=== PATIENT | male | born 1955 | race Caucasian/White ===

== ENCOUNTER 2017-07-23 20:21 | Inpatient (IN) | payer SELFPAY ==
[~2017-07-23] VITALS: Ht 170.2 cm; Wt 96.2 kg
[~2017-07-23 20:21] MED LIST: DAYPRO600 M1 PO; NAPROSYN500 MG PO; ROBAXIN750 MG PO; VICODIN 5/500 505 MG PO
[2017-07-23 20:25] VITALS: BP 119/66
[2017-07-23 20:58] LABS: BASO # 0.1 10*3/uL (0.0-0.1); BASO % 0.5 % (0.0-1.0); EOS # 0.1 10*3/uL (0.0-0.4); EOS % 1.3 % (1.0-4.0); HEMATOCRIT 49.3 % (42.0-52.0); HEMOGLOBIN 16.3 g/dl (14.0-18.0); LYMPH # 1.2 10*3/uL (1.3-4.4); LYMPH % 11.1 % (27.0-41.0); MEAN CELL VOLUME 92.1 fl (80.0-94.0); MEAN CORPUSCULAR HGB 30.5 pg (27.0-31.0); MEAN CORPUSCULAR HGB CONC 33.1 g/dl (33.0-37.0); MEAN PLATELET VOLUME 9.5 fl (9.6-12.3); MONO % 9.3 % (3.0-9.0); NEUT # 8.3 10*3/uL (2.3-7.9); NEUT % 77.6 % (47.0-73.0); PLATELET COUNT AUTOMATED 245 10*3/uL (130-400); RED BLOOD COUNT 5.35 10*6/uL (4.50-5.90); RED CELL DISTRI WIDTH 12.7 % (0-14.5); WHITE BLOOD COUNT 10.6 10*3/uL (4.8-10.8)
[2017-07-23 21:08] LABS: ACT PARTIAL THROMBO TIME 26.1 SECONDS (20.8-31.5); INTERNATIONAL NORM RATIO 0.9 (2.0-3.5)
[2017-07-23 21:15] LABS: ALBUMIN 3.6 gm/dl (3.1-4.5); ALKALINE PHOSPHATASE 86 U/L (45-117); BUN 15 mg/dl (7-24); CHLORIDE 98 mmol/L (98-107); CREATININE 0.83 mg/dL (0.70-1.30); POTASSIUM 4.4 mmol/L (3.5-5.1); SGOT/AST 19 IU/L (3-35); SGPT/ALT 29 U/L (12-78); SODIUM 142 mmol/L (136-145); TOTAL PROTEIN 7.6 gm/dL (6.4-8.2)
[2017-07-23 21:26] LABS: TROPONIN I < 0.015 ng/ml (<0.045)
[2017-07-23 22:12] VITALS: BP 110/51
[2017-07-23 22:27] VITALS: BP 122/57
[2017-07-23 23:40] LABS: ABG BASE EXCESS 4.8 mmol/L (-2.0-2.0); ABG HCO3 31.7 mmol/l (22-26); ABG O2 SATURATION 88.5 % (95-97); ARTERIAL BLOOD GAS PCO2 59.5 mmHg (35-45); ARTERIAL BLOOD GAS PH 7.349 (7.35-7.45); ARTERIAL BLOOD GAS PO2 54.9 mmHg (80-90)
[2017-07-24] VITALS: BP 132/53
[2017-07-24] MEDS ORDERED: CENTRAVITES 501 EACH PO (00:07)
[2017-07-24] MEDS ORDERED: FLONASE ALLERG9.9 ML NAS (00:08)
[2017-07-24] MEDS ORDERED: CLARITIN10 MG PO (00:08)
[2017-07-24 05:20] LABS: ALKALINE PHOSPHATASE 77 U/L (45-117); BUN 14 mg/dl (7-24); CHLORIDE 102 mmol/L (98-107); CHOLESTEROL 161 mg/dL (<200); CREATININE 0.87 mg/dL (0.70-1.30); FREE T4 1.08 ng/dl (0.76-1.46); HDL CHOLESTEROL 47 mg/dl (40-60); LDL CHOLESTEROL 104 mg/dL (9-159); PHOSPHOROUS 2.5 mg/dL (2.5-4.9); POTASSIUM 4.5 mmol/L (3.5-5.1); SGOT/AST 20 IU/L (3-35); SGPT/ALT 28 U/L (12-78); SODIUM 140 mmol/L (136-145); TOTAL PROTEIN 6.9 gm/dL (6.4-8.2); TRIGLYCERIDES 49 mg/dl (<150); VLDL CHOLESTEROL 10 mg/dL (6-40)
[2017-07-24 05:25] LABS: THYROID STIM HORMONE (HS) 0.741 uIU/ml (0.358-4.75)
[2017-07-24 06:09] LABS: HEMATOCRIT 45.8 % (42.0-52.0); HEMOGLOBIN 14.9 g/dl (14.0-18.0); MEAN CELL VOLUME 94.6 fl (80.0-94.0); MEAN CORPUSCULAR HGB 30.8 pg (27.0-31.0); MEAN CORPUSCULAR HGB CONC 32.5 g/dl (33.0-37.0); MEAN PLATELET VOLUME 9.7 fl (9.6-12.3); PLATELET COUNT AUTOMATED 220 10*3/uL (130-400); RED BLOOD COUNT 4.84 10*6/uL (4.50-5.90); RED CELL DISTRI WIDTH 12.7 % (0-14.5); WHITE BLOOD COUNT 8.3 10*3/uL (4.8-10.8)
[2017-07-24 07:08] LABS: ATYPICAL LYMPHS 3 % (0-0); PLATELET SUFFICIENCY NORMAL (NORMAL); TOTAL CELLS COUNTED 100 #CELLS; VITAMIN D, 25-HYDROXY 18.4 ng/mL (30-100)
[2017-07-24 08:00] VITALS: BP 110/61
[2017-07-24 12:00] VITALS: BP 113/56
[2017-07-24 16:00] VITALS: BP 111/56
[2017-07-24 20:00] VITALS: BP 115/66
[2017-07-25] VITALS: BP 104/62
[2017-07-25 06:34] LABS: BASO % 0.1 % (0.0-1.0); HEMATOCRIT 44.9 % (42.0-52.0); HEMOGLOBIN 14.7 g/dl (14.0-18.0); LYMPH # 1.4 10*3/uL (1.3-4.4); LYMPH % 9.9 % (27.0-41.0); MEAN CELL VOLUME 93.7 fl (80.0-94.0); MEAN CORPUSCULAR HGB 30.7 pg (27.0-31.0); MEAN CORPUSCULAR HGB CONC 32.7 g/dl (33.0-37.0); MEAN PLATELET VOLUME 9.5 fl (9.6-12.3); MONO # 0.9 10*3/uL (0.1-1.0); MONO % 6.7 % (3.0-9.0); NEUT # 11.4 10*3/uL (2.3-7.9); NEUT % 82.7 % (47.0-73.0); PLATELET COUNT AUTOMATED 243 10*3/uL (130-400); RED BLOOD COUNT 4.79 10*6/uL (4.50-5.90); WHITE BLOOD COUNT 13.8 10*3/uL (4.8-10.8)
[2017-07-25 07:01] LABS: BUN 20 mg/dl (7-24); CHLORIDE 101 mmol/L (98-107); CREATININE 0.87 mg/dL (0.70-1.30); POTASSIUM 4.9 mmol/L (3.5-5.1); SODIUM 138 mmol/L (136-145)
[2017-07-25 08:00] VITALS: BP 113/76
[2017-07-25] MEDS ORDERED: B12,B-12,B 12500 MC1 PO (11:43)
[2017-07-25] MEDS ORDERED: Vitamin D PO (11:43)
[2017-07-25] MEDS ORDERED: LEVAQUIN750 M1 PO (11:43)
[2017-07-25] MEDS ORDERED: PREDNISONE10 MG PO (11:43)
[2017-07-25 12:00] VITALS: BP 115/85
[2017-07-25] MEDS ORDERED: PROVENTIL HFA6.7 GM INH (12:29)
[2017-07-25 16:00] VITALS: BP 111/48
== END 2017-07-25 19:22 | disposition home or self-care (01) | DRG 871 ==
LOC: ED 20:21 → EDHOLD 21:44 → 4E 21:44
PROVIDERS: Family Medicine; Internal Medicine Critical Care Medicine; Internal Medicine Nephrology; Student in an Organized Health Care Education/Training Program; ADMIT Internal Medicine
DX: A41.9 Sepsis, unspecified organism (principal); J96.02 Acute respiratory failure with hypercapnia; J18.9 Pneumonia, unspecified organism; J44.1 Chronic obstructive pulmonary disease with (acute) exacerbation; J44.0 Chronic obstructive pulmonary disease with (acute) lower respiratory infection; R65.20 Severe sepsis without septic shock; Z71.6 Tobacco abuse counseling; Z82.0 Family history of epilepsy and other diseases of the nervous system

== ENCOUNTER 2021-10-09 15:14 | Emergency (ER) | payer SELFPAY ==
[~2021-10-09] VITALS: Ht 170.1 cm; Wt 96.2 kg
[~2021-10-09 15:14] MED LIST changes: +B12,B-12,B 12500 MC1 PO; +CENTRAVITES 501 EACH PO; +CLARITIN10 MG PO; +FLONASE ALLERG9.9 ML NAS; +LEVAQUIN750 M1 PO; +PREDNISONE10 MG PO; +PROVENTIL HFA6.7 GM INH; +Vitamin D PO
[2021-10-09] MEDS ORDERED: LIPITOR20 MG PO (15:24)
[2021-10-09 15:29] VITALS: BP 121/49
[2021-10-09] MEDS ORDERED: NAPROSYN500 MG PO (17:50)
== END 2021-10-09 18:00 | disposition home or self-care (01) ==
LOC: ED 15:14
DX: M25.462 Effusion, left knee (principal); Z79.899 Other long term (current) drug therapy; Z87.891 Personal history of nicotine dependence

== ENCOUNTER 2022-11-19 01:27 | Inpatient (IN) | payer BC ==
[~2022-11-19] VITALS: Ht 177.8 cm; Wt 88.9 kg
[~2022-11-19 01:27] MED LIST changes: +LIPITOR20 MG PO
[2022-11-19 01:46] VITALS: BP 124/74
[2022-11-19 02:37] LABS: BASO % 0.2 % (0.0-1.0); EOS # 0.1 10*3/uL (0.0-0.4); EOS % 0.6 % (1.0-4.0); HEMATOCRIT 50.7 % (42.0-52.0); LYMPH # 1.1 10*3/uL (1.3-4.4); MEAN CELL VOLUME 92.9 fl (80.0-94.0); MEAN CORPUSCULAR HGB 30.6 pg (27.0-31.0); MEAN CORPUSCULAR HGB CONC 32.9 g/dl (33.0-37.0); MEAN PLATELET VOLUME 9.1 fl (9.6-12.3); MONO # 0.7 10*3/uL (0.1-1.0); NEUT # 8.3 10*3/uL (2.3-7.9); PLATELET COUNT AUTOMATED 272 10*3/uL (130-400); RED BLOOD COUNT 5.46 10*6/uL (4.50-5.90); RED CELL DISTRI WIDTH 12.1 % (0-14.5); WHITE BLOOD COUNT 10.3 10*3/uL (4.8-10.8)
[2022-11-19 02:49] LABS: ACT PARTIAL THROMBO TIME 25.8 SECONDS (20.0-32.1)
[2022-11-19 02:56] LABS: ALKALINE PHOSPHATASE 139 U/L (46-116); BUN 15 mg/dl (9-23); CHLORIDE 103 mmol/L (98-107); POTASSIUM 4.4 mmol/L (3.4-5.1); SGPT/ALT 218 U/L (10-49)
[2022-11-19 03:07] LABS: LIPASE > 3500 U/L (12-53)
[2022-11-19 05:00] VITALS: BP 126/52
[2022-11-19 05:12] LABS: BILIRUBIN Negative (Negative); BLOOD Negative (Negative); CLARITY Clear (Clear); COLOR Dark Yellow (Yellow); GLUCOSE Negative (Negative); KETONE Negative (Negative); LEUKO ESTERASE Negative (Negative); NITRITE Negative (Negative); PH 7.5 (4.5-8.0); SPECIFIC GRAVITY 1.015 (1.001-1.030)
[2022-11-19 05:19] LABS: BACTERIA TRACE; RBC 0-2 rbc/hpf (0-2); WBC 0-2 wbc/hpf (0-5)
[2022-11-19 07:35] LABS: THYROID STIM HORMONE (HS) 2.284 uIU/ml (0.550-4.780)
[2022-11-19 08:00] VITALS: BP 109/53
[2022-11-19] MEDS ORDERED: VITAMIN D3125 MC1 PO (09:33)
[2022-11-19] MEDS ORDERED: SPIRIVA -- 3018 MCG INH (09:35)
[2022-11-19 12:00] VITALS: BP 132/57
[2022-11-19 16:00] VITALS: BP 136/68
[2022-11-19 20:00] VITALS: BP 132/61
[2022-11-20] VITALS: BP 128/53
[2022-11-20 04:35] LABS: BASO % 0.4 % (0.0-1.0); EOS # 0.1 10*3/uL (0.0-0.4); EOS % 0.9 % (1.0-4.0); HEMATOCRIT 43.4 % (42.0-52.0); LYMPH % 25.7 % (27.0-41.0); MEAN CELL VOLUME 93.5 fl (80.0-94.0); MEAN CORPUSCULAR HGB 30.2 pg (27.0-31.0); MEAN CORPUSCULAR HGB CONC 32.3 g/dl (33.0-37.0); MONO # 0.6 10*3/uL (0.1-1.0); MONO % 7.6 % (3.0-9.0); NEUT # 5.1 10*3/uL (2.3-7.9); NEUT % 65.1 % (47.0-73.0); PLATELET COUNT AUTOMATED 207 10*3/uL (130-400); RED BLOOD COUNT 4.64 10*6/uL (4.50-5.90); RED CELL DISTRI WIDTH 12.1 % (0-14.5); WHITE BLOOD COUNT 7.8 10*3/uL (4.8-10.8)
[2022-11-20 04:56] LABS: ALKALINE PHOSPHATASE 124 U/L (46-116); BUN 12 mg/dl (9-23); CHLORIDE 103 mmol/L (98-107); LIPASE 319 U/L (12-53); POTASSIUM 3.9 mmol/L (3.4-5.1); SGPT/ALT 143 U/L (10-49); TOTAL PROTEIN 5.7 gm/dL (6.0-8.0)
[2022-11-20 08:00] VITALS: BP 141/68
[2022-11-20 12:00] VITALS: BP 114/81
[2022-11-20] MEDS ORDERED: HYDROCODONE-AC1 EAC1 PO (13:20)
== END 2022-11-20 14:22 | disposition home or self-care (01) | DRG 440 ==
LOC: ED 01:27 → EDHOLD 03:21 → 5E 03:21
PROVIDERS: Emergency Medicine; Family Medicine; Student in an Organized Health Care Education/Training Program; ADMIT Internal Medicine; ATTEND Internal Medicine
DX: K85.90 Acute pancreatitis without necrosis or infection, unspecified (principal); R00.1 Bradycardia, unspecified; J44.9 Chronic obstructive pulmonary disease, unspecified; E55.9 Vitamin D deficiency, unspecified; R73.9 Hyperglycemia, unspecified; R74.01 Elevation of levels of liver transaminase levels; Z79.899 Other long term (current) drug therapy

== ENCOUNTER 2022-12-04 04:32 | Emergency (ER) | payer BC ==
[~2022-12-04] VITALS: Ht 170.1 cm; Wt 92.5 kg
[~2022-12-04 04:32] MED LIST changes: +HYDROCODONE-AC1 EAC1 PO; +SPIRIVA -- 3018 MCG INH; +VITAMIN D3125 MC1 PO
[2022-12-04 04:42] VITALS: BP 167/91
[2022-12-04 05:01] LABS: BASO % 0.5 % (0.0-1.0); EOS # 0.2 10*3/uL (0.0-0.4); EOS % 2.1 % (1.0-4.0); HEMATOCRIT 50.2 % (42.0-52.0); LYMPH # 2.8 10*3/uL (1.3-4.4); LYMPH % 35.8 % (27.0-41.0); MEAN CELL VOLUME 92.4 fl (80.0-94.0); MEAN CORPUSCULAR HGB 30.6 pg (27.0-31.0); MEAN CORPUSCULAR HGB CONC 33.1 g/dl (33.0-37.0); MONO # 0.5 10*3/uL (0.1-1.0); MONO % 6.7 % (3.0-9.0); NEUT # 4.2 10*3/uL (2.3-7.9); NEUT % 54.6 % (47.0-73.0); PLATELET COUNT AUTOMATED 298 10*3/uL (130-400); RED BLOOD COUNT 5.43 10*6/uL (4.50-5.90); WHITE BLOOD COUNT 7.7 10*3/uL (4.8-10.8)
[2022-12-04 05:26] LABS: BUN 13 mg/dl (9-23); CHLORIDE 101 mmol/L (98-107); LIPASE 50 U/L (12-53); POTASSIUM 4.6 mmol/L (3.4-5.1)
== END 2022-12-04 06:29 | disposition home or self-care (01) ==
LOC: ED 04:32
PROVIDERS: Emergency Medicine
DX: R10.13 Epigastric pain (principal); Z98.890 Other specified postprocedural states; F17.200 Nicotine dependence, unspecified, uncomplicated; J44.9 Chronic obstructive pulmonary disease, unspecified

== ENCOUNTER 2022-12-06 03:17 | Emergency (ER) | payer OTHER ==
[~2022-12-06] VITALS: Ht 170.1 cm; Wt 92.5 kg
[2022-12-06 03:23] VITALS: BP 145/70
[2022-12-06 03:42] LABS: BASO % 0.3 % (0.0-1.0); EOS # 0.1 10*3/uL (0.0-0.4); EOS % 0.7 % (1.0-4.0); HEMATOCRIT 49.3 % (42.0-52.0); LYMPH # 1.6 10*3/uL (1.3-4.4); LYMPH % 14.9 % (27.0-41.0); MEAN CORPUSCULAR HGB 30.9 pg (27.0-31.0); MEAN CORPUSCULAR HGB CONC 33.3 g/dl (33.0-37.0); MONO # 0.9 10*3/uL (0.1-1.0); MONO % 8.1 % (3.0-9.0); NEUT # 8.2 10*3/uL (2.3-7.9); NEUT % 75.8 % (47.0-73.0); PLATELET COUNT AUTOMATED 284 10*3/uL (130-400); RED CELL DISTRI WIDTH 11.9 % (0-14.5); WHITE BLOOD COUNT 10.8 10*3/uL (4.8-10.8)
[2022-12-06 04:00] LABS: ALKALINE PHOSPHATASE 116 U/L (46-116); BUN 8 mg/dl (9-23); CHLORIDE 102 mmol/L (98-107); LIPASE 58 U/L (12-53); POTASSIUM 4.1 mmol/L (3.4-5.1); SGPT/ALT 156 U/L (10-49); TOTAL PROTEIN 6.9 gm/dL (6.0-8.0)
[2022-12-06] MEDS ORDERED: PERCOCET 5-3251 EACH PO (19:40)
[2022-12-06] MEDS ORDERED: HYDROCODONE-AC1 EACH PO (21:52)
[2022-12-06] MEDS ORDERED: ONDANSETRON4 MG SL (21:52)
== END 2022-12-06 04:22 | disposition home or self-care (01) ==
LOC: ED 03:17
PROVIDERS: Internal Medicine
DX: K82.8 Other specified diseases of gallbladder (principal); R79.89 Other specified abnormal findings of blood chemistry; Z79.899 Other long term (current) drug therapy; Z87.891 Personal history of nicotine dependence; Z98.890 Other specified postprocedural states

== ENCOUNTER 2022-12-06 19:22 | Emergency (ER) | payer OTHER ==
[~2022-12-06] VITALS: Wt 92.5 kg
[2022-12-06 19:40] VITALS: BP 136/70
[2022-12-06] MEDS ORDERED: PERCOCET 5-3251 EACH PO (19:40)
[2022-12-06 21:07] LABS: BASO % 0.2 % (0.0-1.0); EOS % 0.4 % (1.0-4.0); HEMATOCRIT 50.8 % (42.0-52.0); LYMPH % 12.2 % (27.0-41.0); MEAN CORPUSCULAR HGB 30.2 pg (27.0-31.0); MEAN CORPUSCULAR HGB CONC 32.5 g/dl (33.0-37.0); MEAN PLATELET VOLUME 9.1 fl (9.6-12.3); MONO # 0.5 10*3/uL (0.1-1.0); MONO % 5.6 % (3.0-9.0); NEUT # 6.9 10*3/uL (2.3-7.9); NEUT % 81.4 % (47.0-73.0); PLATELET COUNT AUTOMATED 259 10*3/uL (130-400); RED BLOOD COUNT 5.46 10*6/uL (4.50-5.90); WHITE BLOOD COUNT 8.5 10*3/uL (4.8-10.8)
[2022-12-06 21:32] LABS: ALKALINE PHOSPHATASE 179 U/L (46-116); BUN 9 mg/dl (9-23); CHLORIDE 99 mmol/L (98-107); LIPASE 2493 U/L (12-53); SGPT/ALT 349 U/L (10-49)
[2022-12-06] MEDS ORDERED: ONDANSETRON4 MG SL (21:52)
[2022-12-06] MEDS ORDERED: HYDROCODONE-AC1 EACH PO (21:52)
== END 2022-12-06 22:15 | disposition home or self-care (01) ==
LOC: ED 19:22
PROVIDERS: Nurse Practitioner Family
DX: K81.9 Cholecystitis, unspecified (principal); Z79.899 Other long term (current) drug therapy; Z87.891 Personal history of nicotine dependence

== ENCOUNTER 2024-10-29 15:37 | Inpatient (IN) | payer BC, MEDICARE ==
[~2024-10-29] VITALS: Ht 170.1 cm; Wt 90.9 kg
[~2024-10-29 15:37] MED LIST changes: +COLACE100 MG PO; +DOXYCYCLINE HY100 M3 PO; +HYDROCODONE-AC1 EACH PO; +ONDANSETRON HYDR4 M1 PO; +ONDANSETRON4 MG SL; +PERCOCET 5-3251 EACH PO; +PHARMASSURE V500 MCG PO; +VITAMIN D350 MCG PO
[2024-10-29 16:00] VITALS: BP 148/97
[2024-10-29] MEDS ORDERED: ACETAMINOPHEN 325 MG TAB PO PRN (16:10)
[2024-10-29] MEDS ORDERED: Acetaminophen/Hydrocodone 5 MG/325 MG TABLET PO PRN (16:10)
[2024-10-29] MEDS ORDERED: MORPHINE Sulfate 2 MG/ML SYR IV PRN (16:10)
[2024-10-29] MEDS ORDERED: Ondansetron Hydrochloride 4 MG/2 ML VIAL IV PRN (16:10)
[2024-10-29] MEDS ORDERED: Albuterol Sulfate 2.5 MG/3 ML VIAL NEB ONE (16:15)
[2024-10-29] MEDS ORDERED: Albuterol Sulf/Ipratropium 3 ML VIAL NEB SCH (16:15)
[2024-10-29 16:29] LABS: BASO % 0.4 % (0.0-1.0); EOS # 0.1 10*3/uL (0.0-0.4); EOS % 0.8 % (1.0-4.0); HEMATOCRIT 51.8 % (42.0-52.0); MEAN CELL VOLUME 95.9 fl (80.0-94.0); MEAN CORPUSCULAR HGB 30.6 pg (27.0-31.0); MEAN CORPUSCULAR HGB CONC 31.9 g/dl (33.0-37.0); MONO # 0.5 10*3/uL (0.1-1.0); MONO % 6.7 % (3.0-9.0); NEUT # 6.2 10*3/uL (2.3-7.9); NEUT % 80.4 % (47.0-73.0); PLATELET COUNT AUTOMATED 251 10*3/uL (130-400); RED CELL DISTRI WIDTH 12.3 % (0-14.5); WHITE BLOOD COUNT 7.7 10*3/uL (4.8-10.8)
[2024-10-29] MEDS ORDERED: STIOLTO RESPIMAT4 GM INH (16:57)
[2024-10-29] MEDS ORDERED: VITAMIN D375 MCG PO (16:58)
[2024-10-29] MEDS ORDERED: cefTRIAXone Sodium 1 GM in SYRINGE INFUSION 10 ML IV SCH (17:00)
[2024-10-29 17:09] LABS: ALKALINE PHOSPHATASE 80 U/L (46-116); BUN 12 mg/dl (9-23); CHLORIDE 98 mmol/L (98-107); POTASSIUM 4.2 mmol/L (3.4-5.1); SGPT/ALT 13 U/L (5-49)
[2024-10-29] MEDS ORDERED: AZITHROMYCIN 250 ML IV SCH (18:00)
[2024-10-29 20:00] VITALS: BP 156/70
[2024-10-30] VITALS: BP 134/63
[2024-10-30 06:27] LABS: HEMATOCRIT 50.1 % (42.0-52.0); MEAN CELL VOLUME 96.2 fl (80.0-94.0); MEAN CORPUSCULAR HGB 30.5 pg (27.0-31.0); MEAN CORPUSCULAR HGB CONC 31.7 g/dl (33.0-37.0); MEAN PLATELET VOLUME 9.7 fl (9.6-12.3); PLATELET COUNT AUTOMATED 263 10*3/uL (130-400); RED BLOOD COUNT 5.21 10*6/uL (4.50-5.90); RED CELL DISTRI WIDTH 12.2 % (0-14.5); WHITE BLOOD COUNT 9.4 10*3/uL (4.8-10.8)
[2024-10-30 06:30] LABS: MANUAL DIFF REFLEX YES
[2024-10-30 07:16] LABS: ALKALINE PHOSPHATASE 83 U/L (46-116); BUN 15 mg/dl (9-23); CHLORIDE 98 mmol/L (98-107); POTASSIUM 4.3 mmol/L (3.4-5.1); SGPT/ALT 13 U/L (5-49); TOTAL PROTEIN 6.5 gm/dL (6.0-8.0)
[2024-10-30 07:24] LABS: PLATELET SUFFICIENCY NORMAL (NORMAL); TOTAL CELLS COUNTED 100 #CELLS
[2024-10-30 08:00] VITALS: BP 120/62
[2024-10-30] MEDS ORDERED: methylPREDNISolone sod succ 40 MG VIAL IV SCH (10:00)
[2024-10-30] MEDS ORDERED: Enoxaparin Sodium 40 MG/0.4 ML SYR SC SCH (10:00)
[2024-10-30] MEDS ORDERED: Nicotine 21 MG PATCH T SCH (10:00)
[2024-10-30 12:00] VITALS: BP 144/69
[2024-10-30 16:00] VITALS: BP 119/58
[2024-10-30 20:00] VITALS: BP 128/55
[2024-10-31] VITALS: BP 116/53
[2024-10-31 05:07] LABS: BUN 21 mg/dl (9-23); CHLORIDE 99 mmol/L (98-107); POTASSIUM 4.8 mmol/L (3.4-5.1)
[2024-10-31 06:41] LABS: HEMATOCRIT 49.4 % (42.0-52.0); MEAN CELL VOLUME 96.1 fl (80.0-94.0); MEAN CORPUSCULAR HGB 30.2 pg (27.0-31.0); MEAN CORPUSCULAR HGB CONC 31.4 g/dl (33.0-37.0); MEAN PLATELET VOLUME 9.7 fl (9.6-12.3); PLATELET COUNT AUTOMATED 264 10*3/uL (130-400); RED BLOOD COUNT 5.14 10*6/uL (4.50-5.90); RED CELL DISTRI WIDTH 12.7 % (0-14.5); WHITE BLOOD COUNT 14.2 10*3/uL (4.8-10.8)
[2024-10-31 06:54] LABS: MANUAL DIFF REFLEX YES
[2024-10-31 07:19] LABS: PLATELET SUFFICIENCY NORMAL (NORMAL); TOTAL CELLS COUNTED 100 #CELLS
[2024-10-31 08:00] VITALS: BP 139/64
[2024-10-31 12:00] VITALS: BP 133/70
[2024-10-31] MEDS ORDERED: PREDNISONE10 MG PO (13:41)
== END 2024-10-31 14:30 | disposition home or self-care (01) | DRG 189 ==
LOC: 4E 15:37
PROVIDERS: Internal Medicine; ADMIT Student in an Organized Health Care Education/Training Program; ATTEND Student in an Organized Health Care Education/Training Program
PROC: 5A0935A Assistance with Respiratory Ventilation, Less than 24 Consecutive Hours, High Flow/Velocity Cannula (ICD-10-PCS; principal; 2024-10-29)
DX: J96.01 Acute respiratory failure with hypoxia (principal); J44.1 Chronic obstructive pulmonary disease with (acute) exacerbation; J45.901 Unspecified asthma with (acute) exacerbation; R65.10 Systemic inflammatory response syndrome (SIRS) of non-infectious origin without acute organ dysfunction; F17.210 Nicotine dependence, cigarettes, uncomplicated; E55.9 Vitamin D deficiency, unspecified; R73.9 Hyperglycemia, unspecified; J98.4 Other disorders of lung; Z82.0 Family history of epilepsy and other diseases of the nervous system; Z68.31 Body mass index [BMI] 31.0-31.9, adult; Z71.6 Tobacco abuse counseling; Z79.899 Other long term (current) drug therapy

== ENCOUNTER 2025-01-17 21:06 | Emergency (ER) | payer OTHER ==
[~2025-01-17] VITALS: Ht 170.1 cm; Wt 90.7 kg
[~2025-01-17 21:06] MED LIST changes: +STIOLTO RESPIMAT4 GM INH; +VITAMIN D375 MCG PO
[2025-01-17 21:17] VITALS: BP 137/67
[2025-01-17] MEDS ORDERED: PREDNISONE50 MG PO (21:33)
[2025-01-17] MEDS ORDERED: methylPREDNISolone sod succ 125 MG VIAL IM ONE (21:35)
[2025-01-17] MEDS ORDERED: Water, Sterile 10 ML VIAL ONE (21:56)
== END 2025-01-17 21:42 | disposition home or self-care (01) ==
LOC: ED 21:06
DX: S76.011A Strain of muscle, fascia and tendon of right hip, initial encounter (principal); J44.9 Chronic obstructive pulmonary disease, unspecified; F17.200 Nicotine dependence, unspecified, uncomplicated; Z79.899 Other long term (current) drug therapy; Z90.49 Acquired absence of other specified parts of digestive tract; Z98.890 Other specified postprocedural states; X58.XXXA Exposure to other specified factors, initial encounter; Y93.89 Activity, other specified; Y92.89 Other specified places as the place of occurrence of the external cause; Y99.8 Other external cause status

== ENCOUNTER 2025-01-23 11:33 | Emergency (ER) | payer OTHER ==
[~2025-01-23] VITALS: Ht 180.3 cm; Wt 108.9 kg
[~2025-01-23 11:33] MED LIST changes: +PREDNISONE50 MG PO
[2025-01-23 11:42] VITALS: BP 146/61
[2025-01-23] MEDS ORDERED: Ketorolac Tromethamine 60 MG/2 ML VIAL IM ONE (12:00)
[2025-01-23] MEDS ORDERED: methylPREDNISolone sod succ 125 MG VIAL IM ONE (13:55)
[2025-01-23] MEDS ORDERED: Acetaminophen/Oxycodone 5 MG/325 MG TABLET PO ONE (13:55)
[2025-01-23] MEDS ORDERED: Motrin,Rufen800 MG PO (14:27)
[2025-01-23] MEDS ORDERED: Water, Sterile 10 ML VIAL ONE (15:06)
== END 2025-01-23 15:10 | disposition home or self-care (01) ==
LOC: ED 11:33
DX: M25.551 Pain in right hip (principal); M51.369 Other intervertebral disc degeneration, lumbar region without mention of lumbar back pain or lower extremity pain; M53.3 Sacrococcygeal disorders, not elsewhere classified; Z79.899 Other long term (current) drug therapy; Z90.49 Acquired absence of other specified parts of digestive tract; Z87.891 Personal history of nicotine dependence

== ENCOUNTER 2025-03-07 12:29 | Emergency (ER) | payer OTHER ==
[~2025-03-07] VITALS: Ht 170.1 cm; Wt 90.7 kg
[~2025-03-07 12:29] MED LIST changes: +Motrin,Rufen800 MG PO
[2025-03-07 12:42] VITALS: BP 149/67
[2025-03-07] MEDS ORDERED: Albuterol Sulf/Ipratropium 3 ML VIAL NEB ONE (12:50)
[2025-03-07 12:56] LABS: BASO # 0.0 10*3/uL (0.0-0.1); BASO % 0.4 % (0.0-1.0); EOS # 0.2 10*3/uL (0.0-0.4); EOS % 2.5 % (1.0-4.0); MEAN CELL VOLUME 94.8 fl (80.0-94.0); MEAN CORPUSCULAR HGB 30.5 pg (27.0-31.0); MEAN PLATELET VOLUME 8.8 fl (9.6-12.3); MONO # 0.5 10*3/uL (0.1-1.0); MONO % 7.4 % (3.0-9.0); NEUT # 4.6 10*3/uL (2.3-7.9); NEUT % 67.8 % (47.0-73.0); NUCLEATED RED BLOOD CELL 0.0 % (0.0-0.0); NUCLEATED RED BLOOD CELL 0.0 10*3/uL (0.0-0.0); PLATELET COUNT AUTOMATED 249 10*3/uL (130-400); RED CELL DISTRI WIDTH 11.6 % (0-14.5)
[2025-03-07 13:11] LABS: ACT PARTIAL THROMBO TIME 27.1 SECONDS (20.0-32.1)
[2025-03-07 13:18] LABS: BUN 12 mg/dl (9-23)
[2025-03-07] MEDS ORDERED: PREDNISONE20 M1 PO (15:22)
[2025-03-07] MEDS ORDERED: AVPAK AZITHROM250 MG PO (15:22)
== END 2025-03-07 16:11 | disposition home or self-care (01) ==
LOC: ED 12:29
PROVIDERS: Internal Medicine
DX: J44.1 Chronic obstructive pulmonary disease with (acute) exacerbation (principal); F17.200 Nicotine dependence, unspecified, uncomplicated; Z90.49 Acquired absence of other specified parts of digestive tract; Z99.81 Dependence on supplemental oxygen; Z79.899 Other long term (current) drug therapy